=== PATIENT | male | born 1940 | race Caucasian/White ===

== ENCOUNTER 2019-03-12 16:52 | Emergency (ER) | payer OTHER ==
[~2019-03-12] VITALS: Ht 190.5 cm; Wt 89.8 kg
[2019-03-12 17:01] VITALS: Ht 190.5 cm; Wt 89.8 kg
[2019-03-12 18:33] LABS: BASOPHIL % 0.4 % (0-2); PLATELET COUNT 232 x10^3mcL (130-400); RED CELL DISTRIBUTION WIDTH 12.8 % (11.5-14.5)
[2019-03-12 18:39] LABS: CALCIUM 9.3 mg/dL (8.5-10.1); CARBON DIOXIDE 29.4 mmol/L (21-32); CHLORIDE SERUM 97 mmol/L (98-107); CREATININE SERUM 0.8 mg/dL (0.7-1.3); GLUCOSE SERUM 132 mg/dL (74-106); POTASSIUM SERUM 4.1 mmol/L (3.5-5.1); SODIUM SERUM 133 mmol/L (136-145)
[2019-03-12 18:44] LABS: ALBUMIN 3.6 g/dL (3.4-5.0); ALKALINE PHOSPHATASE 77 U/L (46-116); ALT/SGPT 31 U/L (16-63); AST/SGOT 24 U/L (15-37); BILIRUBIN TOTAL 0.4 mg/dL (0.20-1.00)
[2019-03-13 00:08] VITALS: BP 119/63
== END 2019-03-13 00:08 | disposition short-term general hospital (02) ==
LOC: ED 16:52
PROVIDERS: Student in an Organized Health Care Education/Training Program
DX: S62.612A Displaced fracture of proximal phalanx of right middle finger, initial encounter for closed fracture (principal); S22.061A Stable burst fracture of T7-T8 vertebra, initial encounter for closed fracture; S22.068A Other fracture of T7-T8 thoracic vertebra, initial encounter for closed fracture; S22.31XA Fracture of one rib, right side, initial encounter for closed fracture; S01.01XA Laceration without foreign body of scalp, initial encounter; S81.812A Laceration without foreign body, left lower leg, initial encounter; T14.8XXA Other injury of unspecified body region, initial encounter; Y04.8XXA Assault by other bodily force, initial encounter; Y93.89 Activity, other specified; Y92.89 Other specified places as the place of occurrence of the external cause; Y99.8 Other external cause status
CPT/HCPCS: 36415; 90715; A4570; Q0092; Q9967